=== PATIENT | male | born 2000 | race Caucasian/White ===

== ENCOUNTER → 2019-07-15 16:19 | Outpatient (BNVA) | payer OTHER, SELFPAY | PROVIDERS: Visit Provider Emergency Medicine | DX: J03.90 Acute tonsillitis, unspecified (principal) | CPT/HCPCS: 87081; 87880 ==

== ENCOUNTER → 2019-09-13 12:04 | Outpatient (BNVA) | payer OTHER, SELFPAY | PROVIDERS: Visit Provider Nurse Practitioner Family | DX: R10.9 Unspecified abdominal pain (principal); K59.00 Constipation, unspecified | CPT/HCPCS: 74019 ==

== ENCOUNTER 2019-09-17 10:35 | Emergency (ER) | payer OTHER, SELFPAY ==
[2019-09-17 10:43] VITALS: BP 150/86; PULSE 76; RESP 18; TEMP 36.7; O2SAT 100; BMI 25.8
[2019-09-17 10:48] VITALS: O2SAT 100
--- NOTE | 2019-09-17 10:57 | XR_ITS ---
WS: [id number] XR acute abdomen series [id number] REASON FOR EXAM: constipation FINDINGS: The upright chest was normal no pneumoperitoneum. No pneumonia thorax or pneumonia. The abdomen showed nonspecific gas and fecal stasis. There is no obstructive changes. XR/XR acute abdomen series [id number] IMPRESSION: Nonspecific abdominal findings. Negative chest.
--- NOTE | 2019-09-17 10:57 | W.ED.GENADLT ---
HPI - General Adult General: Chief complaint: General Medical Stated complaint: CONSTIPATION Time Seen by Provider: 09/17/19 10:41 Source: patient Mode of arrival: ambulatory Limitations: no limitations History of Present Illness: HPI narrative: Patient is a 18-year-old male who presents to ED today with complaint of constipation over the past 6 days or so. Patient tells me he was seen at a clinic 4 days ago for the same complaint. He was prescribed mag citrate and states he has taken 3 bottles of this as well as stool softeners and an at home enema all without much success. Patient states he has had very small hard bowel movements but normally has regular sized BMs daily. He initially was having some abdominal pain when he was seen 4 days ago but states this pain is improving. He states pain will come on before he has a diarrhea stool (occurs after taking mag citrate). He is passing gas normally. He has not had any vomiting. No fevers. Onset (ago): day(s) Location: abdomen Pain Consistency: intermittent Associated symptoms: Deny chest pain, dyspnea, headache(s), nausea, rash or vomiting Treatments prior to arrival: other (mag citrate, stool softeners, enema) Review of Systems Const: Denies: fever, chills, body aches, change in appetite, change in weight or fatigue Card: Denies: chest pain Resp: Denies: shortness of breath GI: Reports: abdominal pain (improving), diarrhea and constipation; Denies: nausea, vomiting, vomiting blood, heartburn/indigestion, rectal swelling, rectal itching, blood in stool, black tarry stool, mucus in stool, white/light colored stool or fatty stool : Denies: flank pain, difficulty urinating, painful urination, urinary frequency or urinary urgency Musc: Denies: neck pain or back pain Skin/Breast: Denies: rash Neuro: Denies: headache, numbness in extremities, weakness in extremities, changes in sensation or dizziness PFSH ED PFSH: Social History Smoking and tobacco status: never smoked Second hand smoke exposure: No Alcohol intake: never Desire information about alcohol rehabilitation?: No Desire information about substance/drug rehabilitation?: No Current occupational status: employed History of recent travel: No Current gender identity: Male Physical Exam Const: COMMON NORMALS: no apparent distress, average body habitus, oriented x3, no limitations, healthy appearing, alert and well nourished Resp: COMMON NORMALS: normal respiratory effort and clear to auscultation bilaterally AUSCULTATION: clear to auscultation bilaterally Cardio: COMMON NORMALS: regular rate and regular rhythm RATE: regular rate RHYTHM: regular rhythm GI: COMMON NORMALS: normal to inspection, nondistended, normoactive bowel sounds, soft to palpation, no hepatosplenomegaly and no masses AUSCULTATION: Yes normoactive bowel sounds PALPATION: Yes soft, Yes tender (very mild tenderness to RLQ; no guarding; neg specialized exams) and Yes no hepatosplenomegaly RECTAL EXAM: Yes visual inspection normal, Yes normal sphincter tone and Yes other (no large/firm stool ball palpated ) : COMMON NORMALS: Yes no CVA tenderness BLADDER/KIDNEY EXAM: Yes no CVA tenderness Back/Pelvis: COMMON NORMALS: no CVA tenderness Neuro: COMMON NORMALS: oriented x3 SENSORIUM/ORIENTATION: Yes alert Skin: COMMON NORMALS: no rashes or lesions noted GENERAL SKIN EXAM: no rashes or lesions noted Course Vital Signs: Vital signs: Vital Signs Temperature 98.1 F 09/17/19 10:43 Pulse Rate 76 09/17/19 10:43 Respiratory Rate 18 09/17/19 10:43 Blood Pressure 150/86 09/17/19 10:43 Pulse Oximetry 100 09/17/19 10:48 [facility] - General Adult Lab Data: Labs: Lab Results 09/17/19 09/17/19 Range/Units 11:32 11:32 WBC 4.8 (4.5-13.0) 10^3/ uL RBC 5.65 H (4.1-5.3) 10^6/u L Hgb 15.9 (11.7-16.6) g/dL Hct 46.8 (42.0-52.0) % MCV 82.8 (80-94) fL MCH 28.1 (28.0-34.0) pg MCHC 34.0 (30.0-36.0) g/dL RDW 12.4 (12.1-15.1) % Plt Count 287 (130-400) 10^3/c mm MPV 9.3 (7.4-10.4) fL Neut % (Auto) 61.1 % Lymph % (Auto) 24.7 % Castro % (Auto) 11.5 % Eos % (Auto) 1.7 % Baso % (Auto) 0.8 % Neut # (Auto) 2.9 (1.8-8.0) 10^3/u L Lymph # (Auto) 1.2 L (1.5-6.5) 10^3/u L Castro # (Auto) 0.6 (0.2-0.9) 10^3/u L Eos # (Auto) 0.1 (0.0-0.8) 10^3/u L Baso # (Auto) 0.0 (0.0-0.1) 10^3/u L Nucleated RBC % (a uto) 0 % Nucleated RBCs # 0.0 /100WBC Sodium 138 (136-145) mmol/L Potassium 4.3 (3.5-5.1) mmol/L Chloride 99 (98-107) mmol/L Carbon Dioxide 27 (22-29) mmol/L Anion Gap 16.3 (5-19) BUN 9 (6-20) mg/dL Creatinine 1.0 (0.7-1.2) mg/dL GFR Calculation 96.3 (90-130) mL/min Glucose 86 (65-115) mg/dL Calculated Osmolal ity 281 L (285-295) mOsm/k g Calcium 9.4 (8.5-10.5) mg/dL Total Bilirubin 0.4 (0.15-1.2) mg/dL AST 27 (0-40) U/L ALT 48 H (0-41) U/L Alkaline Phosphata se 67 (40-130) IU/L Total Protein 8.2 (6.6-8.7) g/dL Albumin 4.7 (3.5-5.2) g/dL Globulin 3.5 (1.3-4.6) g/dL Imaging Data^: Acute Abdominal Series XR: Radiologist's impression: [address] [address] XRay Report Signed Patient: MARCELLE SEALS Unit #: [id number] : 2000 Age/Sex: 18 / M ADM Date: 09/17/19 Loc: ER Room/Bed: Attending Dr: Ordering Provider/Ordering MD: Odalys Sagastume Date of Service: 09/17/19 Procedure(s): XR acute abdomen series [id number] Accession Number(s): [id number] Report Number: [id number] WS: [id number] XR acute abdomen series [id number] REASON FOR EXAM: constipation FINDINGS: The upright chest was normal no pneumoperitoneum. No pneumonia thorax or pneumonia. The abdomen showed nonspecific gas and fecal stasis. There is no obstructive changes. XR/XR acute abdomen series [id number] IMPRESSION: Nonspecific abdominal findings. Negative chest. Dictated By: Finn Colon DO Signed By: Finn Colon DO Signed Date/Time: 09/17/19 113 DD/ 1130 Discharge Plan Discharge Patient Disposition: Home, Self-Care Clinical Impression: Constipation Qualifiers: Constipation type: unspecified constipation type Qualified Code(s): K59.00 - Constipation, unspecified Condition: Stable Prescriptions: No Action No Known Home Medications RF: 0 Discharge Orders: Discharge Order (Routine); Ordered 09/17/19 Ordered By: Odalys Sagastume Patient Instructions: Constipation - Adult, Constipation (ED) Activity Restrictions/Additional Instructions: As discussed you may take the mixture given to you today home and drink. In addition I recommend you begin taking 2 doses of MiraLAX daily until you begin having normal stools. Follow-up with primary care or return to the emergency department for any worsening/severe abdominal pain, inability to pass gas, vomiting, fevers, or any other concerns you may have Coding Level of Care Code ED [employer]on Shampoo Assistant for Chg Fwd Exam Detailed
[2019-09-17 11:39] LABS: Basophils % 0.8 %; Eosinophils # 0.1 10^3/uL (0.0-0.8); Eosinophils % 1.7 %; Hematocrit 46.8 % (42.0-52.0); Hemoglobin 15.9 g/dL (11.7-16.6); Lymphocytes # 1.2 10^3/uL (1.5-6.5); Lymphocytes % 24.7 %; Mean Corpuscular Hemoglobin 28.1 pg (28.0-34.0); Mean Corpuscular Volume 82.8 fL (80-94); Mean Platelet Volume 9.3 fL (7.4-10.4); Monocytes # 0.6 10^3/uL (0.2-0.9); Monocytes % 11.5 %; Neutrophils # 2.9 10^3/uL (1.8-8.0); Neutrophils % 61.1 %; Nucleated Red Blood Cells % 0 %; Platelet Count 287 10^3/cmm (130-400); Red Blood Count 5.65 10^6/uL (4.1-5.3); Red Cell Distribution Width 12.4 % (12.1-15.1); White Blood Count 4.8 10^3/uL (4.5-13.0)
[2019-09-17 11:53] LABS: Alanine Aminotransferase 48 U/L (0-41); Albumin Level 4.7 g/dL (3.5-5.2); Alkaline Phosphatase 67 IU/L (40-130); Anion Gap 16.3 (5-19); Aspartate Amino Transferase 27 U/L (0-40); Blood Urea Nitrogen 9 mg/dL (6-20); Calcium 9.4 mg/dL (8.5-10.5); Carbon Dioxide 27 mmol/L (22-29); Chloride 99 mmol/L (98-107); Globulin 3.5 g/dL (1.3-4.6); Glomerular Filtration Rate 96.3 mL/min (90-130); Glucose 86 mg/dL (65-115); Osmolality Calculated 281 mOsm/kg (285-295); Potassium 4.3 mmol/L (3.5-5.1); Sodium 138 mmol/L (136-145); Total Bilirubin 0.4 mg/dL (0.15-1.2); Total Protein 8.2 g/dL (6.6-8.7)
[2019-09-17 13:36] VITALS: BP 133/91; PULSE 66; RESP 16
== END 2019-09-17 13:38 | disposition home or self-care (01) ==
PROVIDERS: Emergency Provider Physician Assistant
DX: K59.00 Constipation, unspecified (principal)
CPT/HCPCS: 12345; 36415; 45915; 74022; 80053; 85025; 99282; 99283

== ENCOUNTER → 2021-06-04 11:38 | Outpatient (BNVA) | payer OTHER, SELFPAY | PROVIDERS: Visit Provider Emergency Medicine | DX: Z20.822 Contact with and (suspected) exposure to COVID-19 (principal); J01.90 Acute sinusitis, unspecified | CPT/HCPCS: 87635 ==

== ENCOUNTER → 2023-05-29 15:38 | Outpatient (BNVA) | payer OTHER, SELFPAY | PROVIDERS: Visit Provider Nurse Practitioner Family | DX: R11.10 Vomiting, unspecified (principal) | CPT/HCPCS: 87400; 87426 ==

== ENCOUNTER 2023-12-05 10:52 | Outpatient (CLI) | payer OTHER, SELFPAY ==
--- NOTE | 2023-12-05 10:58 | XR_ITS ---
WS: [id number] XR KUB [id number] REASON FOR EXAM: R10.9 - Unspecified abdominal pain FINDINGS: No free air or retroperitoneal air is identified. The bowel gas pattern is unremarkable with no findings of obstruction. There is an unusually configured density (C-shaped 15 x 4 mm) just above the transverse process of L3 on the left. There is an additional calcification at this level however it is too medial to lie with in the left no other potential urinary tract calculus. Ureter. XR/XR KUB [id number] IMPRESSION: Density at L3 on the left which does overlie the position of the ureter however it is atypical in configuration for a urinary tract calculus. Possibly this is within overlying bowel. If there is hematuria recommend a follow-up examinatio n in 3 days.
== END 2023-12-05 10:53 | disposition home or self-care (01) ==
LOC: RAD 10:53
PROVIDERS: PCP Nurse Practitioner; Visit Provider Nurse Practitioner
DX: R10.9 Unspecified abdominal pain (principal); R31.9 Hematuria, unspecified
CPT/HCPCS: 74018; 81000; 87086

== ENCOUNTER 2023-12-10 14:03 | Outpatient (CLI) | payer OTHER, SELFPAY ==
--- NOTE | 2023-12-10 16:00 | CT_ITS ---
WS: [id number] CT ABDOMEN AND PELVIS NONCONTRAST HISTORY: R31.9 - Hematuria, unspecified TECHNIQUE: Imaging performed through the abdomen and pelvis. Coronal and sagittal reformats are submi tted. All CT scans at [facility] use at least one of these dose optimization techniques: auto mated exposure control; mA and/or kV adjustment per patient size (includes targeted exams where dose is matched to clinical indication); or iterative reconstruction. DLP: 525.87 mGy.cm COMPARISON: None available. Lower thorax: 4 mm noncalcified nodule RIGHT lung base. Normal size heart. Liver: Normal size liver with moderate hepatic steatosis. Gallbladder: Distended gallbladder. Variable density within the gallbladder may represent sludge. Pancreas: Normal size and attenuation. Normal pancreatic duct. No pancreatitis or mass. Spleen: Normal. Adrenal glands: Normal. No mass. Right kidney: Horseshoe shaped kidneys. Anterior rotation of the kidney. No obstruction. Left kidney: Horseshoe shaped kidneys. Anterior rotation of the kidney. No obstruction. Aorta: Normal abdominal aorta, no aneurysm or atherosclerosis. No free fluid, intraperitoneal air or significant lymphadenopathy. GI tract: Normal noncontrast imaging of the stomach, small bowel and colon. No obstruction or wall th ickening. Normal appendix. Abdominal wall: Ventral abdominal wall umbilical hernia contains fat only. Pelvis: Well-distended urinary bladder. No free fluid. No stones within the bladder. Osseous structures: Unremarkable. CT/CT kidney stone [id number] IMPRESSION: 1. Normal appendix. 2. Horseshoe shaped kidneys. 3. No renal obstruction or calcifications are identified. 4. Moderate diffuse hepatic steatosis. 5. Mild increased attenuation within the gallbladder. May be due to a small am ount of sludge. Gallbladder can be further evaluated by ultrasound if clinicall y thought necessary.
== END 2023-12-10 14:04 | disposition home or self-care (01) ==
PROVIDERS: PCP Nurse Practitioner; Visit Provider Nurse Practitioner
DX: R31.9 Hematuria, unspecified (principal); R10.9 Unspecified abdominal pain; Q63.1 Lobulated, fused and horseshoe kidney; K76.0 Fatty (change of) liver, not elsewhere classified
CPT/HCPCS: 74176

== ENCOUNTER → 2024-02-11 14:47 | Outpatient (BNVA) | payer OTHER, SELFPAY | PROVIDERS: Visit Provider Family Medicine | DX: Z13.1 Encounter for screening for diabetes mellitus (principal); Z13.6 Encounter for screening for cardiovascular disorders; R53.83 Other fatigue; K76.0 Fatty (change of) liver, not elsewhere classified; E34.9 Endocrine disorder, unspecified | CPT/HCPCS: 85025 ==

== ENCOUNTER → 2024-02-24 14:00 | Outpatient (BNVA) | payer OTHER, SELFPAY | PROVIDERS: Referring Provider Family Medicine; Visit Provider Family Medicine | DX: Z13.1 Encounter for screening for diabetes mellitus (principal); Z13.6 Encounter for screening for cardiovascular disorders; K76.0 Fatty (change of) liver, not elsewhere classified; E34.9 Endocrine disorder, unspecified; R53.83 Other fatigue | CPT/HCPCS: 80053; 80061; 82607; 84402; 84403; 84443; 85025 ==